=== PATIENT | female | born 1960 | race Caucasian/White ===

== ENCOUNTER 2020-01-20 16:22 | Observation (INO) | payer MEDICARE, MEDICAID ==
[~2020-01-20] VITALS: Ht 157.5 cm; Wt 43.6 kg
[~2020-01-20 16:22] MED LIST: CARAFATE1 G PO; KLONOPIN1 MG PO; NEXIUM40 MG PO; OMEPRAZOLE40 MG PO; PEPCID40 MG PO; TENORMIN50 MG PO
[2020-01-20 16:57] LABS: HEMATOCRIT 44.2 % (36.0-48.0); HEMOGLOBIN 14.5 g/dL (12-16); LYMPHOCYTES 15.7 % (15-50); MCH 29.8 pg (26.0-34.0); MCHC 32.8 g/dL (31.0-37.0); MCV 90.8 fL (80.0-100.0); MEAN PLATELET VOLUME 11.2 fL (7.4-10.4); NEUTROPHILS 78.3 % (40-80); PLATELET COUNT 189 10x3/uL (130-400); RBC 4.87 10x6/uL (4.00-5.40); RDW 12.2 % (11.5-14.5); WBC 8.3 10x3/uL (4.8-10.8)
[2020-01-20 17:00] VITALS: BP 128/87
[2020-01-20 17:14] LABS: CALC OSMOLALITY 279 mosm/kg (275-300); CALCIUM 9.4 mg/dL (8.5-10.1); CHLORIDE - SERUM 99 mmol/L (98-107); GLUCOSE 98 mg/dL (74-106); POTASSIUM - SERUM 4.3 mmol/L (3.5-5.1); SODIUM 138 mmol/L (136-145); UREA NITROGEN 24 mg/dL (7-18); eGFR NON AFRICAN AMERICAN 60 mL/min (90-120)
[2020-01-20 17:29] LABS: ALKALINE PHOSPHATASE 173 U/L (30-120); ALT (SGPT) 32 U/L (10-68); AMYLASE - SERUM 86 U/L (25-115); BILIRUBIN - TOTAL 0.52 mg/dL (0.2-1.3); CKMB 1.2 U/L (0.0-3.6); CREATINE KINASE 57 UL (21-215); MAGNESIUM - SERUM 1.7 mg/dL (1.8-2.4); PROTEIN - SERUM 7.4 g/dL (6.4-8.2)
[2020-01-20 17:43] LABS: LIPASE 41 U/L (73-393); TROPONIN-I < 0.017 ng/mL (0.000-0.060)
[2020-01-20 18:30] VITALS: BP 133/82
[2020-01-20 19:32] LABS: APTT 26.8 SECONDS (22.8-39.4); INR 0.94 (0.85-1.17); PROTIME 12.6 SECONDS (11.6-15.0)
[2020-01-20] MEDS ORDERED: PROTONIX40 MG PO (19:59)
[2020-01-20 20:00] VITALS: BP 133/75
[2020-01-20] MEDS ORDERED: BUTALB-APAP-CA1 EACH PO (20:01)
[2020-01-20] MEDS ORDERED: GABAPENTIN100 MG PO (20:02)
[2020-01-20] MEDS ORDERED: AMBIEN5 MG PO (20:03)
[2020-01-21] VITALS (8 sets, daily range): BP systolic 131–158; BP diastolic 62–82; Ht 157.5 cm; Wt 43.6 kg
[2020-01-21 02:32] LABS: UDS - AMPHET POSITIVE QUAL (NEGATIVE); UDS - BARB POSITIVE QUAL (NEGATIVE); UDS - BENZO NEGATIVE QUAL (NEGATIVE); UDS - COCAINE NEGATIVE QUAL (NEGATIVE); UDS - OPIATE POSITIVE QUAL (NEGATIVE); UDS - PCP NEGATIVE QUAL (NEGATIVE); UDS - THC POSITIVE QUAL (NEGATIVE)
[2020-01-21 06:24] LABS: HEMATOCRIT 37.2 % (36.0-48.0); HEMOGLOBIN 12.2 g/dL (12-16); LYMPHOCYTES 24.5 % (15-50); MCH 29.7 pg (26.0-34.0); MCHC 32.8 g/dL (31.0-37.0); MCV 90.5 fL (80.0-100.0); MEAN PLATELET VOLUME 10.7 fL (7.4-10.4); NEUTROPHILS 63.9 % (40-80); RBC 4.11 10x6/uL (4.00-5.40); RDW 12.1 % (11.5-14.5); WBC 6.3 10x3/uL (4.8-10.8)
[2020-01-21 06:36] LABS: PLATELET COUNT 232 10x3/uL (130-400)
[2020-01-21 06:44] LABS: ALKALINE PHOSPHATASE 121 U/L (30-120); ALT (SGPT) 25 U/L (10-68); BILIRUBIN - TOTAL 0.48 mg/dL (0.2-1.3); CALC OSMOLALITY 279 mosm/kg (275-300); CALCIUM 8.2 mg/dL (8.5-10.1); CARBON DIOXIDE 28.5 mmol/L (21.0-32.0); CHLORIDE - SERUM 104 mmol/L (98-107); CREATININE - SERUM 0.8 mg/dL (0.6-1.3); POTASSIUM - SERUM 3.8 mmol/L (3.5-5.1); SODIUM 140 mmol/L (136-145); UREA NITROGEN 20 mg/dL (7-18); eGFR NON AFRICAN AMERICAN 78 mL/min (90-120)
[2020-01-21 07:00] LABS: GLUCOSE 67 mg/dL (74-106)
--- NOTE | 2020-01-21 09:30 | NUR ---
PT LAYING IN BED A&O X4. C/O PAIN 02/17, PROVIDED PAIN MEDS PER ORDER. PT C/O MORPHINE FOR PAIN, SHE STATES IT GIVES HER A HEADACHE. PIV IN RIGHT AC, PATENT AND NON TENDER. PLACED SCDS ON PT. EDUCATED PT ON ISP AND CL. PT VERBALIZED UNDERSTANDING. BED LOW, RAILS X2. CL IN REACH. WILL CONTINUE TO MONITOR.
--- NOTE | 2020-01-21 10:00 | NUR ---
PT A&O X4, SITTING UP IN BED. EXPLAINED TO PT CONSENT FORMS. PT STATED "I DON'T KNOW WHAT IS GOING ON AND YOU HAVENT TOLD ME ANYTHING.". I ASKED PT IF SHE WOULD LIKE TO SPEAK TO DR PRIOR TO SIGNING CONSENT FORMS, PT AGREED. CALLED [facility] AND THEY STATED THE PHYSICAN WILL EDUCATE PT AND CONSENT FORMS WILL BE SIGNED IN [facility]. PT REFUSED [facility] MEDS, WILL ALSO BE GIVEN IN [facility] PER [facility] NURSE. PT DENIES FURTHER NEEDS, WILL CONTINUE TO MONITOR. .
[2020-01-21] MEDS ORDERED: NICODERM CQ1 EAC3 TOPICAL (17:05)
== END 2020-01-21 17:44 | disposition home or self-care (01) ==
LOC: D.ER 16:22 → D.MS 18:07 → OBSVTIME 18:08 → D.MS 01-21 17:44
PROVIDERS: Family Medicine; ADMIT Family Medicine Adult Medicine; ATTEND Family Medicine Adult Medicine
DX: K22.2 Esophageal obstruction (principal); J43.9 Emphysema, unspecified; J96.11 Chronic respiratory failure with hypoxia; F17.203 Nicotine dependence unspecified, with withdrawal; I10 Essential (primary) hypertension; M19.90 Unspecified osteoarthritis, unspecified site; F41.9 Anxiety disorder, unspecified; F60.89 Other specific personality disorders; K44.9 Diaphragmatic hernia without obstruction or gangrene; K21.0 Gastro-esophageal reflux disease with esophagitis